=== PATIENT | male | born 1995 | race Caucasian/White ===

== ENCOUNTER 2019-07-02 01:05 | Emergency (ER) | payer SELFPAY ==
[2019-07-02 01:29] VITALS: BP 175/87; PULSE 109; RESP 18; TEMP 36.8; O2SAT 100; BMI 23.7
--- NOTE | 2019-07-02 01:42 | ED_ITS ---
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 History of injecting AC spaces with meth none down the lower extremities. Last surgery was a year ago for possible hernia patient did get a hydromorphone from a friend of his 10 mg he took that before coming in MD Complaint: extremity swelling Onset (ago): hour(s) Pain Consistency: constant Location: left, right and lower extremity Severity scale (1-10): 6 Quality: burning and aching Radiation: proximal Relieving factors: rest Exacerbating factors: weight bearing and walking Associated symptoms: Reports no associated symptoms; Deny chest pain, fever(s) or rash Review of Systems Const: Denies: fever, chills or body aches Eyes: Denies: change in vision or blurry vision ENMT: Denies: throat pain or nasal congestion Card: Denies: chest pain or shortness of breath on exertion Resp: Denies: shortness of breath, productive cough or non-productive cough GI: Denies: abdominal pain, nausea or vomiting : Denies: difficulty urinating Musc: Reports: extremity pain and redness Skin/Breast: Denies: rash Neuro: Denies: headache Psych: Denies: anxiety or depression Aman/Lymph: Denies: easy bruising PFSH ED PFSH: Family History (Updated 06/14/19 @ 08:54 by WESTON Knowles) Other Bleeding disorder Cancer Diabetes Denies family history of Anesthesia complication Social History Smoking and tobacco status: current every day smoker Physical Exam Const: COMMON NORMALS: no apparent distress, average body habitus and oriented x3 HENMT: COMMON NORMALS: normocephalic HEAD & SCALP: normal to inspection and normocephalic FACE & SINUS: normal facial exam Eye: COMMON NORMALS: conjunctivae normal GENERAL EYE: normal appearance of both eyes CONJUNCTIVA: Yes conjunctivae normal Neck/C-Spine: COMMON NORMALS: no JVD Chest: COMMONS NORMALS: inspection of chest normal Resp: COMMON NORMALS: normal respiratory effort and clear to auscultation isiah aterally AUSCULTATION: clear to auscultation bilaterally Cardio: COMMON NORMALS: no JVD, regular rate and regular rhythm RATE: regular rate RHYTHM: regular rhythm GI: COMMON NORMALS: normal to inspection, nondistended, normoactive bowel sounds Extremity: COMMON NORMALS: normal to inspection and full ROM GENERAL: Yes other findings (Does have calf tenderness but no swelling.) RIGHT LOWER EXTREMITY: Yes foot & digits (Redness and swelling throughout the foot very warm to touch) LEFT LOWER EXTREMITY: Yes foot & digits (Mild erythema and a couple spots on the foot) Neuro: COMMON NORMALS: oriented x3 Course Vital Signs: Vital signs: Vital Signs Temperature 98.2 F 07/02/19 01:29 Pulse Rate 109 H 07/02/19 01:29 Respiratory Rate 18 07/02/19 01:29 Blood Pressure 175/87 07/02/19 01:29 Pulse Oximetry 100 07/02/19 01:29 Discharge Plan Discharge Prescriptions: No Action No Known Home Medications RF: 0 Coding Level of Care Code 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
[2019-07-02] MEDS: sodium chloride 0.9% 1,000 ML 999 ML IV (02:00)
[2019-07-02 02:10] LABS: D Dimer <= 0.27 ug/mIFEU (0-0.59)
[2019-07-02 02:20] LABS: Alanine Aminotransferase 21 U/L (0-41); Albumin Level 4.5 g/dL (3.5-5.2); Alkaline Phosphatase 63 IU/L (40-130); Anion Gap 15.8 (5-19); Aspartate Amino Transferase 19 U/L (0-40); Blood Urea Nitrogen 16 mg/dL (6-20); Calcium 9.3 mg/dL (8.5-10.5); Carbon Dioxide 28 mmol/L (22-29); Chloride 98 mmol/L (98-107); Globulin 2.5 g/dL (1.3-4.6); Glomerular Filtration Rate 91.8 mL/min (90-130); Glucose 87 mg/dL (65-115); Osmolality Calculated 282 mOsm/kg (285-295); Potassium 3.8 mmol/L (3.5-5.1); Sodium 138 mmol/L (136-145); Total Bilirubin 0.2 mg/dL (0.15-1.2)
[2019-07-02 02:32] LABS: Basophils % 0.4 %; Eosinophils # 0.1 10^3/uL (0.0-0.8); Eosinophils % 1.1 %; Hematocrit 39.1 % (42.0-52.0); Hemoglobin 12.4 g/dL (11.7-16.6); Lymphocytes # 2.8 10^3/uL (0.8-4.8); Lymphocytes % 24.6 %; Mean Corpuscular HGB Conc 31.7 g/dL (30.0-36.0); Mean Corpuscular Hemoglobin 28.7 pg (28.0-34.0); Mean Corpuscular Volume 90.5 fL (80-94); Mean Platelet Volume 9.9 fL (7.4-10.4); Monocytes # 0.9 10^3/uL (0.2-0.9); Neutrophils # 7.5 10^3/uL (1.8-7.7); Neutrophils % 65.6 %; Nucleated Red Blood Cells % 0 %; Platelet Count 285 10^3/cmm (130-400); Red Blood Count 4.32 10^6/uL (4.1-5.3); Red Cell Distribution Width 13.2 % (12.1-15.1); White Blood Count 11.4 10^3/uL (4.0-10.0)
[2019-07-02] MEDS: cefTRIAXone 1,000 MG in sodium chloride 0.9% (plus) 50 ML 100 MG IV (02:36)
[2019-07-02 03:00] LABS: Lactate (Lactic Acid level) 1.5 mmol/L (0.5-2.2)
[2019-07-02] MEDS: vancomycin 1,000 MG in sodium chloride 0.9% 250 ML 250 MG IV (03:08)
[2019-07-02 04:20] VITALS: BP 158/89; PULSE 104; RESP 20; O2SAT 100
== END 2019-07-02 04:20 | disposition home or self-care (01) ==
PROVIDERS: Emergency Provider Nurse Practitioner Family; Family Provider Nurse Practitioner Family; PCP Nurse Practitioner Family
DX: M25.571 Pain in right ankle and joints of right foot (principal); M25.471 Effusion, right ankle; F17.200 Nicotine dependence, unspecified, uncomplicated
CPT/HCPCS: 12345; 80053; 83605; 85025; 85378; 87040; 96360; 96361; 96365; 96366; 96367; 96375; 99283; 99284; J0696; J3370; J7030; J7050

== ENCOUNTER 2019-07-28 20:35 | Emergency (ER) | payer SELFPAY ==
[2019-07-28 20:39] VITALS: BP 164/94; PULSE 100; RESP 18; TEMP 36.4; O2SAT 99; BMI 23.7
--- NOTE | 2019-07-28 20:51 | W.ED.ABDPA2 ---
HPI - Abdominal Pain General: Chief Complaint: Abdominal Pain Stated Complaint: ABD PAIN Time Seen by Provider: 07/28/19 20:51 History of Present Illness: HPI narrative: Patient is a 23-year-old male who comes to the ED with abdominal pain and constipation. Patient has a past medical history of left inguinal hernia that was repaired surgically with mesh. Patient states that this abdominal pain is been a chronic issue after having hernia surgery a couple years ago. Abdominal pain is located in the left lower quadrant and usually is associated with some constipation as well. He had not had a bowel movement in a couple days and around 1 PM today he started having intense pain in the left lower quadrant of his abdomen that he rated a 10 out of 10. He came to the ED for evaluation. He denies any nausea, vomiting, fevers, chills, diarrhea, hematuria, dysuria or blood in the stool. As soon as patient got back into ED room he went to the bathroom and was able to have a bowel movement which helped his pain. He says that his pain now is rated 5 out of 10. Patient told me that he does not want any pain meds while here in the ED. patient also reported saying he had some trouble urinating for the past couple hours but was able to urinate after having bowel movement here in the ED. Associated Symptoms: Reports constipation; Denies chills, diarrhea, dysuria, fever(s), hematochezia, hematuria, nausea and vomiting Review of Systems Const: Denies: fever, chills or fatigue Eyes: Denies: change in vision or eye discomfort ENMT: Denies: throat pain, painful swallowing, nasal discharge or nasal congestion Card: Denies: chest pain, palpitations, edema, swelling of feet/ankles, shortness of breath on exertion or shortness of breath when lying down Resp: Denies: shortness of breath, productive cough or non-productive cough GI: Reports: abdominal pain and constipation; Denies: nausea, vomiting, diarrhea or blood in stool : Reports: difficulty urinating; Denies: flank pain, painful urination or blood in urine Musc: Denies: neck pain, back pain or extremity swelling Skin/Breast: Denies: rash or new lesion Neuro: Denies: headache, numbness in extremities or weakness in extremities [facility] ED PFSH: Medical History Anxiety Depression Surgical History History of circumcision History of colonoscopy (12/07/17) Repeat at age 44 History of esophagogastroduodenoscopy (EGD) (12/07/17) History of inguinal hernia repair Left History of wisdom tooth extraction Family History Other Bleeding disorder Cancer Diabetes Denies family history of Anesthesia complication Social History Smoking and tobacco status: current every day smoker Alcohol intake: never History of recent travel: No Physical Exam Const: COMMON NORMALS: no apparent distress, oriented x3, healthy appearing and alert GENERAL APPEARANCE: cooperative HENMT: COMMON NORMALS: normocephalic HEAD & SCALP: normocephalic MOUTH: oral and palatal mucosa normal THROAT: posterior oropharynx normal and uvula midline Eye: COMMON NORMALS: PERRL PUPIL: Yes PERRL Neck/C-Spine: COMMON NORMALS: supple GENERAL: Yes normal visual inspection Lymph: LYMPHATIC: no lymphadenopathy noted (no cervical lymphadenopathy palpated.) Resp: COMMON NORMALS: normal respiratory effort, no retractions, no use of accessory muscles and clear to auscultation bilaterally EFFORT & INSPECTION: Yes able to speak in complete sentences and No respiratory distress AUSCULTATION: clear to auscultation bilaterally Cardio: COMMON NORMALS: regular rate, regular rhythm, S1 normal heart sound, S2 normal heart sound, no gallops, no clicks, no murmurs and peripheral pulses 2+ throughout RATE: regular rate RHYTHM: regular rhythm HEART SOUNDS: S1 normal and S2 normal PERIPHERAL PULSES: pulses 2+ throughout GI: COMMON NORMALS: normal to inspection, nondistended, normoactive bowel sounds, soft to palpation, non-tender and no masses PALPATION: Yes soft : COMMON NORMALS: Yes no CVA tenderness BLADDER/KIDNEY EXAM: Yes no CVA tenderness Back/Pelvis: COMMON NORMALS: no CVA tenderness Extremity: COMMON NORMALS: normal to inspection, normal capillary refill and no pedal edema Neuro: COMMON NORMALS: oriented x3 SENSORIUM/ORIENTATION: Yes alert GAIT: Yes normal gait Skin: COMMON NORMALS: no rashes or lesions noted GENERAL SKIN EXAM: no rashes or lesions noted and dry skin Course Vital Signs: Vital signs: Vital Signs Temperature 97.6 F 07/28/19 20:39 Pulse Rate 85 07/28/19 22:15 Respiratory Rate 20 H 07/28/19 22:15 Blood Pressure 123/53 07/28/19 22:15 Pulse Oximetry 99 07/28/19 22:15 MDM - Abdominal Pain MDM Narrative: Medical decision making narrative: Patient is a 23-year-old male who comes to the ED with left lower quadrant abdominal pain and constipation. Abdominal pain improved after patient had a bowel movement while here in the ED. CBC and CMP were normal. KUB showed no evidence for obstruction or constipation. I went to inform patient about results and he was not in his room. Nurse told me that she had not seen patient in the room for a while. The nurse asked the emergency department admitting staff and they saw patient exit hospital. I was not able to discuss findings or talk about plan of care for patient due to him leaving AMA. Lab Data: Attestation: I reviewed the patient's lab results. Labs: Lab Results 07/28/19 07/28/19 Range/Units 21:46 21:46 WBC 6.1 (4.0-10.0) 10^3/ uL RBC 4.90 (4.1-5.3) 10^6/u L Hgb 14.3 (11.7-16.6) g/dL Hct 45.5 (42.0-52.0) % MCV 92.9 (80-94) fL MCH 29.2 (28.0-34.0) pg MCHC 31.4 (30.0-36.0) g/dL RDW 13.8 (12.1-15.1) % Plt Count 308 (130-400) 10^3/c mm MPV 9.7 (7.4-10.4) fL Neut % (Auto) 57.8 % Lymph % (Auto) 29.9 % Mccone % (Auto) 9.6 % Eos % (Auto) 2.0 % Baso % (Auto) 0.5 % Neut # (Auto) 3.5 (1.8-7.7) 10^3/u L Lymph # (Auto) 1.8 (0.8-4.8) 10^3/u L Mccone # (Auto) 0.6 (0.2-0.9) 10^3/u L Eos # (Auto) 0.1 (0.0-0.8) 10^3/u L Baso # (Auto) 0.0 (0.0-0.1) 10^3/u L Nucleated RBC % (a uto) 0 % Nucleated RBCs # 0.0 /100WBC Sodium 141 (136-145) mmol/L Potassium 4.1 (3.5-5.1) mmol/L Chloride 102 (98-107) mmol/L Carbon Dioxide 29 (22-29) mmol/L Anion Gap 14.1 (5-19) BUN 8 (6-20) mg/dL Creatinine 1.0 (0.7-1.2) mg/dL GFR Calculation 91.8 (90-130) mL/min Glucose 99 (65-115) mg/dL Calculated Osmolal ity 288 (285-295) mOsm/k g Calcium 9.7 (8.5-10.5) mg/dL Total Bilirubin 0.2 (0.15-1.2) mg/dL AST 14 (0-40) U/L ALT 14 (0-41) U/L Alkaline Phosphata se 67 (40-130) IU/L Total Protein 7.4 (6.6-8.7) g/dL Albumin 4.5 (3.5-5.2) g/dL Globulin 2.9 (1.3-4.6) g/dL Imaging Data ^: KUB: Attestation: I personally reviewed and interpreted this imaging study as follows: Radiologist's impression: [address] [address] XRay Report Signed Patient: Roberto Norris Unit #: [id number] : 1995 Age/Sex: 23 / M ADM Date: 07/28/19 Loc: ER Room/Bed: Attending Dr: Ordering Provider/Ordering MD: Antwan Gomes Date of Service: 07/28/19 Procedure(s): XR KUB portable [id number] Accession Number(s): [id number] Report Number: [id number] PROCEDURE INFORMATION: Exam: XR Abdomen, 1 View Exam date and time: 07/28/2019 9:34 PM Age: 23 years old Clinical indication: Constipation; Abdominal pain; Localized; Left lower quadrant (llq); Prior surgery; Surgery date: 6+ months; Surgery type: Hernia; Additional info: Abdominal pain llq, constipation TECHNIQUE: Imaging protocol: XR of the abdomen. Views: Frontal supine view of the abdomen. 1 View. COMPARISON: CR XR KUB [id number] 02/13/2018 1:32 PM FINDINGS: Gastrointestinal tract: Small amount of scattered stool in the colon and rectum. The small bowel is decompressed. Intraperitoneal space: No free peritoneal air. Bones/joints: Unremarkable. XR/XR KUB portable [id number] IMPRESSION: 1. No evidence for obstruction or constipation. 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
--- NOTE | 2019-07-28 21:33 | XRR_ITS ---
PROCEDURE INFORMATION: Exam: XR Abdomen, 1 View Exam date and time: 07/28/2019 9:34 PM Age: 23 years old Clinical indication: Constipation; Abdominal pain; Localized; Left lower quadrant (llq); Prior surgery; Surgery date: 6+ months; Surgery type: Hernia; Additional info: Abdominal pain llq, constipation TECHNIQUE: Imaging protocol: XR of the abdomen. Views: Frontal supine view of the abdomen. 1 View. COMPARISON: CR XR KUB [id number] 02/13/2018 1:32 PM FINDINGS: Gastrointestinal tract: Small amount of scattered stool in the colon and rectum. The small bowel is decompressed. Intraperitoneal space: No free peritoneal air. Bones/joints: Unremarkable. XR/XR KUB portable [id number] IMPRESSION: 1. No evidence for obstruction or constipation.
[2019-07-28 22:10] LABS: Basophils % 0.5 %; Eosinophils # 0.1 10^3/uL (0.0-0.8); Hematocrit 45.5 % (42.0-52.0); Hemoglobin 14.3 g/dL (11.7-16.6); Lymphocytes # 1.8 10^3/uL (0.8-4.8); Lymphocytes % 29.9 %; Mean Corpuscular HGB Conc 31.4 g/dL (30.0-36.0); Mean Corpuscular Hemoglobin 29.2 pg (28.0-34.0); Mean Corpuscular Volume 92.9 fL (80-94); Mean Platelet Volume 9.7 fL (7.4-10.4); Monocytes # 0.6 10^3/uL (0.2-0.9); Monocytes % 9.6 %; Neutrophils # 3.5 10^3/uL (1.8-7.7); Neutrophils % 57.8 %; Nucleated Red Blood Cells % 0 %; Platelet Count 308 10^3/cmm (130-400); Red Cell Distribution Width 13.8 % (12.1-15.1); White Blood Count 6.1 10^3/uL (4.0-10.0)
[2019-07-28 22:15] VITALS: BP 123/53; PULSE 85; RESP 20; O2SAT 99
[2019-07-28 23:05] LABS: Alanine Aminotransferase 14 U/L (0-41); Albumin Level 4.5 g/dL (3.5-5.2); Alkaline Phosphatase 67 IU/L (40-130); Anion Gap 14.1 (5-19); Aspartate Amino Transferase 14 U/L (0-40); Blood Urea Nitrogen 8 mg/dL (6-20); Calcium 9.7 mg/dL (8.5-10.5); Carbon Dioxide 29 mmol/L (22-29); Chloride 102 mmol/L (98-107); Globulin 2.9 g/dL (1.3-4.6); Glomerular Filtration Rate 91.8 mL/min (90-130); Glucose 99 mg/dL (65-115); Osmolality Calculated 288 mOsm/kg (285-295); Potassium 4.1 mmol/L (3.5-5.1); Sodium 141 mmol/L (136-145); Total Bilirubin 0.2 mg/dL (0.15-1.2); Total Protein 7.4 g/dL (6.6-8.7)
--- NOTE | 2019-07-29 00:04 | PC.NURSE ---
Pt. not found in room on rounding. Provider notified. Pt. not in lobby. Not in ER
== END 2019-07-29 00:10 | disposition left against medical advice (07) ==
PROVIDERS: Emergency Provider Physician Assistant; Family Provider Nurse Practitioner Family; PCP Nurse Practitioner Family
DX: R10.9 Unspecified abdominal pain (principal); Z53.21 Procedure and treatment not carried out due to patient leaving prior to being seen by health care provider; F17.210 Nicotine dependence, cigarettes, uncomplicated
CPT/HCPCS: 12345; 36415; 74018; 80053; 85025; 99281; 99283